=== PATIENT | female | born 1960 | race Caucasian/White ===

== ENCOUNTER 2022-06-28 22:06 | Inpatient (IN) | payer OTHER ==
[~2022-06-28] VITALS: Ht 168.9 cm; Wt 84.0 kg
[2022-06-28 23:16] LABS: BASOPHILS % (AUTO) 0.2 % (0-1); EOSINOPHILS % (AUTO) 0.2 % (0-6); HEMOGLOBIN 12.8 g/dl (12.0-16.0); LYMPHOCYTES # (AUTO) 1.4 X10'3 (1.1-4.8); MEAN CORPUSCULAR HEMOGLOBIN 33.8 PG (27.0-31.0); MEAN CORPUSCULAR HGB CONC 35.7 g/dL (33.0-36.5); MEAN CORPUSCULAR VOLUME 94.8 FL (78-98); MEAN PLATELET VOLUME 6.8 FL (7.4-10.4); MONOCYTES % (AUTO) 6.9 % (2-12); NEUTROPHILS # (AUTO) 11.8 X10'3 (1.8-7.7); NEUTROPHILS % (AUTO) 82.7 % (42-75); PLATELET COUNT 258 X10'3 (140-440); RED BLOOD COUNT 3.79 X10'6 (4.20-5.60); RED CELL DISTRIBUTION WIDTH 12.8 % (11.5-14.5); WHITE BLOOD COUNT 14.3 X10'3 (4.5-11.0)
[2022-06-28 23:26] LABS: ALANINE AMINOTRANSFERASE 22 U/L (12-78); ALBUMIN 3.4 G/DL (3.4-5.0); ALKALINE PHOSPHATASE 84 IU/L (46-116); ANION GAP 9 (8-16); ASPARTATE AMINO TRANSFERASE 25 U/L (10-37); BILIRUBIN,TOTAL 0.5 MG/DL (0.1-1.0); BLOOD UREA NITROGEN 9 MG/DL (7-18); BUN/CREATININE RATIO 8.9 (6.6-38.0); CALCIUM 8.2 MG/DL (8.5-10.1); CHLORIDE 82 MMOL/L (99-107); CREATININE 1.01 MG/DL (0.40-0.90); GLUCOSE 123 MG/DL (70-104); LIPASE 98 U/L (73-393); POTASSIUM 3.4 MMOL/L (3.5-5.1); TOTAL CARBON DIOXIDE 22.7 MMOL/L (24-32); TOTAL PROTEIN 6.9 G/DL (6.4-8.2); eGFR 56 ML/MIN
[2022-06-28 23:31] LABS: SODIUM 114 MMOL/L (135-145)
[2022-06-29 02:27] LABS: CLARITY,URINE CLEAR (Clear); GLUCOSE, URINE NEGATIVE (Neg); KETONES,URINE NEGATIVE (Neg); LEUKOCYTE ESTERASE ,URINE NEGATIVE (Neg); NITRITES, URINE NEGATIVE (Neg); OCCULT BLOOD,URINE NEGATIVE (Neg); PROTEIN,URINE NEGATIVE (Neg); UROBILINOGEN,URINE 0.2 E.U/dL (0.2-1.0)
[2022-06-29 02:30] LABS: COLOR,URINE STRAW (Yellow); UA COLLECTION TYPE CLN CATCH MIDSTREAM
[2022-06-29] MEDS ORDERED: ondansetron/PF 4mg/2ml inj IV ONE (03:40)
[2022-06-29] MEDS ORDERED: POTASSIUM BICARB 20meq eff tab 20 MEQ TABLET.EFF PO ONE (03:40)
[2022-06-29 04:02] LABS: OSMOLALITY 238 MOSM/K (280-300)
[2022-06-29 04:06] LABS: OSMOLALITY UA 101 MOSM/K (50-1400)
[2022-06-29 04:14] LABS: SODIUM,URINE RANDOM < 15 MEQ/L
[2022-06-29] MEDS ORDERED: magnesium hydroxide 30ml (MOM) UD suspension PO PRN (04:15)
[2022-06-29] MEDS ORDERED: magnesium 4gm in 100ml NS 100 ML IV PRN (04:15)
[2022-06-29] MEDS ORDERED: potassium Cl 40MEQ/1/2NS 520ml 520 ML IV PRN (04:15)
[2022-06-29] MEDS ORDERED: ondansetron/PF 4mg/2ml inj IV PRN (04:15)
[2022-06-29] MEDS ORDERED: mag hydrox/Alum hydrox/simeth 30ml oral suspension PO PRN (04:15)
[2022-06-29] MEDS ORDERED: magnesium Cl slow-release 64mg tablet PO PRN (04:15)
[2022-06-29] MEDS ORDERED: potassium Cl 20 mEq SR tablet PO PRN ×2 (04:15)
[2022-06-29] MEDS ORDERED: amLODIPine 2.5mg tablet PO ONE (04:25)
[2022-06-29] MEDS: normal saline 1000ml 1,000 ML IV SCH ×2 (04:49→14:10)
--- NOTE | 2022-06-29 05:12 | NUR ---
PATIENT AMBULATED TO RESTROOM WITHOUT DIFFICULTY.
[2022-06-29 07:18] LABS: MAGNESIUM 1.5 MG/DL (1.5-2.4); POTASSIUM 4.1 MMOL/L (3.5-5.1)
[2022-06-29] MEDS: K and/or MAG REPLACEMENT MC SCH ×2 (08:00→20:00)
[2022-06-29] MEDS: docusate sod 100mg capsule PO SCH ×2 (08:00→20:00)
[2022-06-29] MEDS: heparin, porcine 5000 units/ml vial SQ SCH ×2 (08:01→20:50)
[2022-06-29 08:03] LABS: BASOPHILS % (AUTO) 0.3 % (0-1); EOSINOPHILS % (AUTO) 0.3 % (0-6); HEMATOCRIT 38.9 % (35.0-45.0); HEMOGLOBIN 13.3 g/dl (12.0-16.0); LYMPHOCYTES # (AUTO) 1.4 X10'3 (1.1-4.8); LYMPHOCYTES % (AUTO) 11.5 % (21-51); MEAN CORPUSCULAR HEMOGLOBIN 32.7 PG (27.0-31.0); MEAN CORPUSCULAR HGB CONC 34.3 g/dL (33.0-36.5); MEAN CORPUSCULAR VOLUME 95.5 FL (78-98); MEAN PLATELET VOLUME 7.5 FL (7.4-10.4); MONOCYTES # (AUTO) 0.9 X10'3 (0-0.9); MONOCYTES % (AUTO) 7.3 % (2-12); NEUTROPHILS % (AUTO) 80.6 % (42-75); PLATELET COUNT 282 X10'3 (140-440); RED BLOOD COUNT 4.07 X10'6 (4.20-5.60); RED CELL DISTRIBUTION WIDTH 12.6 % (11.5-14.5); WHITE BLOOD COUNT 12.4 X10'3 (4.5-11.0)
[2022-06-29 08:12] LABS: ALANINE AMINOTRANSFERASE 22 U/L (12-78); ALBUMIN 3.3 G/DL (3.4-5.0); ALBUMIN/GLOBULIN RATIO 0.9 (1.1-1.5); ALKALINE PHOSPHATASE 88 IU/L (46-116); ANION GAP 8 (8-16); ASPARTATE AMINO TRANSFERASE 24 U/L (10-37); BILIRUBIN,TOTAL 0.6 MG/DL (0.1-1.0); BLOOD UREA NITROGEN 6 MG/DL (7-18); BUN/CREATININE RATIO 6.3 (6.6-38.0); CHLORIDE 85 MMOL/L (99-107); CREATININE 0.95 MG/DL (0.40-0.90); GLUCOSE 115 MG/DL (70-104); TOTAL CARBON DIOXIDE 24.2 MMOL/L (24-32); eGFR 60 ML/MIN
[2022-06-29 08:33] LABS: SODIUM 117 MMOL/L (135-145)
[2022-06-29] MEDS: salt irrigation nasal spray 45 ML SPRAY NS SCH (13:05)
[2022-06-29] MEDS: fluticasone nasal spray 16GM bottle NS SCH (13:05)
[2022-06-29] MEDS ORDERED: OMEP40CA21 PO (13:30)
[2022-06-29] MEDS ORDERED: LISI20TA28 PO (13:30)
[2022-06-29] MEDS ORDERED: FLUT16SP2 BOTHNARES (13:30)
[2022-06-29] MEDS ORDERED: IBUP200C5 PO (13:30)
[2022-06-29 15:53] LABS: ALBUMIN 3.7 G/DL (3.4-5.0); ANION GAP 6 (8-16); BLOOD UREA NITROGEN 6 MG/DL (7-18); BUN/CREATININE RATIO 5.5 (6.6-38.0); CALCIUM 9.1 MG/DL (8.5-10.1); CHLORIDE 89 MMOL/L (99-107); CREATININE 1.09 MG/DL (0.40-0.90); GLUCOSE 109 MG/DL (70-104); POTASSIUM 4.1 MMOL/L (3.5-5.1); SODIUM 121 MMOL/L (135-145); TOTAL CARBON DIOXIDE 26.4 MMOL/L (24-32); eGFR 51 ML/MIN
--- NOTE | 2022-06-29 18:45 | NUR ---
Patient in room [facility]. I have received report from ERIKA Corrales and had the opportunity to ask questions and assume patient care.
--- NOTE | 2022-06-29 19:10 | NUR ---
pt arrived to floor via wc. ambulated to bathroom and then into bed.
[2022-06-29 19:15] VITALS: BP 132/61
[2022-06-29] MEDS ORDERED: fluticasone nasal spray 16GM bottle NS PRN (20:40)
[2022-06-29] MEDS: cetirizine 10mg tablet PO SCH (20:49)
[2022-06-29] MEDS: acetaminophen 325mg tablet PO PRN (21:05)
[2022-06-29 22:00] VITALS: BP 151/71
[2022-06-30] MEDS: normal saline 1000ml 1,000 ML IV SCH ×2 (02:37→10:15)
[2022-06-30] MEDS: acetaminophen 325mg tablet PO PRN ×2 (03:37→13:55)
--- NOTE | 2022-06-30 06:24 | NUR ---
Problems reprioritized. Patient report given, questions answered & plan of care reviewed with ERIKA Cartwright.
[2022-06-30 06:52] VITALS: BP 138/72
[2022-06-30 07:01] LABS: BASOPHILS % (AUTO) 0.5 % (0-1); EOSINOPHILS # (AUTO) 0.1 X10'3 (0-0.9); EOSINOPHILS % (AUTO) 0.6 % (0-6); HEMATOCRIT 34.4 % (35.0-45.0); LYMPHOCYTES # (AUTO) 2.4 X10'3 (1.1-4.8); LYMPHOCYTES % (AUTO) 27.3 % (21-51); MEAN CORPUSCULAR HEMOGLOBIN 33.8 PG (27.0-31.0); MEAN CORPUSCULAR HGB CONC 34.9 g/dL (33.0-36.5); MEAN PLATELET VOLUME 7.4 FL (7.4-10.4); MONOCYTES # (AUTO) 1.1 X10'3 (0-0.9); MONOCYTES % (AUTO) 12.1 % (2-12); NEUTROPHILS # (AUTO) 5.2 X10'3 (1.8-7.7); NEUTROPHILS % (AUTO) 59.5 % (42-75); PLATELET COUNT 244 X10'3 (140-440); RED BLOOD COUNT 3.54 X10'6 (4.20-5.60); RED CELL DISTRIBUTION WIDTH 13.1 % (11.5-14.5); WHITE BLOOD COUNT 8.8 X10'3 (4.5-11.0)
[2022-06-30 07:08] LABS: ALANINE AMINOTRANSFERASE 20 U/L (12-78); ALBUMIN 2.9 G/DL (3.4-5.0); ALBUMIN/GLOBULIN RATIO 0.9 (1.1-1.5); ALKALINE PHOSPHATASE 74 IU/L (46-116); ANION GAP 6 (8-16); ASPARTATE AMINO TRANSFERASE 22 U/L (10-37); BILIRUBIN,TOTAL 0.4 MG/DL (0.1-1.0); BLOOD UREA NITROGEN 10 MG/DL (7-18); BUN/CREATININE RATIO 8.7 (6.6-38.0); CALCIUM 8.1 MG/DL (8.5-10.1); CHLORIDE 95 MMOL/L (99-107); CREATININE 1.15 MG/DL (0.40-0.90); GLUCOSE 93 MG/DL (70-104); MAGNESIUM 1.8 MG/DL (1.5-2.4); POTASSIUM 3.8 MMOL/L (3.5-5.1); SODIUM 125 MMOL/L (135-145); TOTAL CARBON DIOXIDE 24.5 MMOL/L (24-32); TOTAL PROTEIN 6.1 G/DL (6.4-8.2); eGFR 48 ML/MIN
[2022-06-30] MEDS ORDERED: pantoprazole 40mg Tablet.DR PO SCH (07:30)
[2022-06-30] MEDS: salt irrigation nasal spray 45 ML SPRAY NS SCH (07:59)
[2022-06-30] MEDS ORDERED: lisinopril 20mg tablet PO SCH (08:00)
[2022-06-30] MEDS: docusate sod 100mg capsule PO SCH (08:00)
[2022-06-30] MEDS: fluticasone nasal spray 16GM bottle NS SCH (08:00)
[2022-06-30] MEDS: cetirizine 10mg tablet PO SCH (08:00)
[2022-06-30] MEDS: heparin, porcine 5000 units/ml vial SQ SCH (08:05)
[2022-06-30] MEDS ORDERED: pseudoephedrine 30mg tablet PO ONE (08:50)
[2022-06-30 11:00] VITALS: BP 128/60
--- NOTE | 2022-06-30 14:19 | NUR ---
PT DISCHARGED IN STABLE CONDITION. LEFT FACILITY IN PRIVATE VEHICLE WITH FRIEND. IV DC CANULA INTACT. FOLLOW UP INSTRUCTIONS GIVEN, ALL QUESTIONS ANSWERED. ALL BELONGINGS IN HAND. Addendum: 06/30/22 at 1420 by Amanda Saleem RN Amended: Links added.
== END 2022-06-30 14:23 | disposition home or self-care (01) | DRG 641 ==
LOC: ER 22:08 → ED HOLD 06-29 04:15 → SUR 3N 06-29 19:05
PROVIDERS: ADMIT Internal Medicine; ATTEND Family Medicine
DX: E87.1 Hypo-osmolality and hyponatremia (principal); E86.0 Dehydration; H92.03 Otalgia, bilateral; Z20.822 Contact with and (suspected) exposure to COVID-19; R09.81 Nasal congestion; D72.823 Leukemoid reaction; E87.6 Hypokalemia; K21.9 Gastro-esophageal reflux disease without esophagitis; E87.8 Other disorders of electrolyte and fluid balance, not elsewhere classified; I12.9 Hypertensive chronic kidney disease with stage 1 through stage 4 chronic kidney disease, or unspecified chronic kidney disease; N18.30 Chronic kidney disease, stage 3 unspecified; Z88.0 Allergy status to penicillin; Z88.8 Allergy status to other drugs, medicaments and biological substances; Z79.899 Other long term (current) drug therapy
CPT/HCPCS: 36415; 71045; 80048; 80053; 81003; 82570; 83690; 83735; 83930; 83935; 84300; 84540; 85025; 87081; 87635; 96361; 96374; 99285; G0378; J1644; J2405; J7030

== ENCOUNTER 2022-07-02 19:29 | Emergency (ER) | payer SELFPAY ==
[~2022-07-02] VITALS: Ht 167.6 cm; Wt 84.1 kg
[~2022-07-02 19:29] MED LIST: FLUT16SP2 BOTHNARES; LISI20TA28 PO; OMEP40CA21 PO
[2022-07-02 22:25] LABS: BASOPHILS % (AUTO) 0.2 % (0-1); EOSINOPHILS # (AUTO) 0.1 X10'3 (0-0.9); EOSINOPHILS % (AUTO) 0.7 % (0-6); HEMOGLOBIN 12.6 g/dl (12.0-16.0); LYMPHOCYTES # (AUTO) 2.2 X10'3 (1.1-4.8); LYMPHOCYTES % (AUTO) 19.2 % (21-51); MEAN CORPUSCULAR HEMOGLOBIN 33.1 PG (27.0-31.0); MEAN CORPUSCULAR HGB CONC 34.1 g/dL (33.0-36.5); MEAN CORPUSCULAR VOLUME 97.2 FL (78-98); MEAN PLATELET VOLUME 6.8 FL (7.4-10.4); MONOCYTES # (AUTO) 1.2 X10'3 (0-0.9); MONOCYTES % (AUTO) 10.8 % (2-12); NEUTROPHILS # (AUTO) 7.8 X10'3 (1.8-7.7); NEUTROPHILS % (AUTO) 69.1 % (42-75); PLATELET COUNT 275 X10'3 (140-440); RED BLOOD COUNT 3.81 X10'6 (4.20-5.60); RED CELL DISTRIBUTION WIDTH 13.1 % (11.5-14.5); WHITE BLOOD COUNT 11.3 X10'3 (4.5-11.0)
[2022-07-02 22:37] LABS: ALANINE AMINOTRANSFERASE 23 U/L (12-78); ALBUMIN 3.6 G/DL (3.4-5.0); ALBUMIN/GLOBULIN RATIO 0.9 (1.1-1.5); ALKALINE PHOSPHATASE 80 IU/L (46-116); ANION GAP 11 (8-16); ASPARTATE AMINO TRANSFERASE 26 U/L (10-37); BILIRUBIN,TOTAL 0.4 MG/DL (0.1-1.0); BLOOD UREA NITROGEN 5 MG/DL (7-18); BUN/CREATININE RATIO 4.8 (6.6-38.0); CHLORIDE 95 MMOL/L (99-107); CREATININE 1.05 MG/DL (0.40-0.90); GLUCOSE 92 MG/DL (70-104); MAGNESIUM 1.6 MG/DL (1.5-2.4); POTASSIUM 3.1 MMOL/L (3.5-5.1); SODIUM 130 MMOL/L (135-145); TOTAL CARBON DIOXIDE 24.4 MMOL/L (24-32); TOTAL PROTEIN 7.4 G/DL (6.4-8.2); eGFR 53 ML/MIN
[2022-07-02 23:34] LABS: CLARITY,URINE CLEAR (Clear); COLOR,URINE YELLOW (Yellow); GLUCOSE, URINE NEGATIVE (Neg); KETONES,URINE NEGATIVE (Neg); LEUKOCYTE ESTERASE ,URINE NEGATIVE (Neg); NITRITES, URINE NEGATIVE (Neg); OCCULT BLOOD,URINE TRACE-INTACT (Neg); PROTEIN,URINE NEGATIVE (Neg); UROBILINOGEN,URINE 0.2 E.U/dL (0.2-1.0)
[2022-07-02 23:38] LABS: UA COLLECTION TYPE VOIDED
[2022-07-02 23:42] LABS: BACTERIA,URINE FEW /HPF (Neg); MUCUS STRANDS NONE SEEN /LPF (Neg); RBC,URINE 0-2 /HPF (0-2); SQUAMOUS EPITHELIAL CELL,UR FEW /LPF (FEW); WBC,URINE 0-4 /HPF (0-4)
[2022-07-03] MEDS ORDERED: potassium Cl 20 mEq SR tablet PO STA (00:18)
[2022-07-03 00:35] VITALS: BP 170/81
== END 2022-07-03 00:37 | disposition home or self-care (01) ==
LOC: ER 19:30
DX: E87.1 Hypo-osmolality and hyponatremia (principal); E87.6 Hypokalemia; G89.29 Other chronic pain; M54.59 Other low back pain; K21.9 Gastro-esophageal reflux disease without esophagitis; I10 Essential (primary) hypertension; Z88.1 Allergy status to other antibiotic agents; Z88.0 Allergy status to penicillin; Z79.899 Other long term (current) drug therapy
CPT/HCPCS: 36415; 80053; 81001; 83735; 85025; 99283

== ENCOUNTER 2022-07-04 23:29 | Emergency (ER) | payer SELFPAY ==
[~2022-07-04] VITALS: Ht 167.6 cm; Wt 84.1 kg
[2022-07-04 23:35] VITALS: BP 193/83
[2022-07-05 00:34] LABS: CLARITY,URINE CLEAR (Clear); GLUCOSE, URINE NEGATIVE (Neg); KETONES,URINE NEGATIVE (Neg); LEUKOCYTE ESTERASE ,URINE NEGATIVE (Neg); NITRITES, URINE NEGATIVE (Neg); OCCULT BLOOD,URINE NEGATIVE (Neg); PH,URINE 5.5 (4.8-8.0); PROTEIN,URINE NEGATIVE (Neg); UROBILINOGEN,URINE 0.2 E.U/dL (0.2-1.0)
[2022-07-05 00:37] LABS: ALANINE AMINOTRANSFERASE 25 U/L (12-78); ALBUMIN 3.6 G/DL (3.4-5.0); ALKALINE PHOSPHATASE 72 IU/L (46-116); ANION GAP 10 (8-16); ASPARTATE AMINO TRANSFERASE 25 U/L (10-37); BILIRUBIN,TOTAL 0.3 MG/DL (0.1-1.0); BLOOD UREA NITROGEN 7 MG/DL (7-18); BUN/CREATININE RATIO 6.1 (6.6-38.0); CALCIUM 8.8 MG/DL (8.5-10.1); CHLORIDE 92 MMOL/L (99-107); CREATININE 1.14 MG/DL (0.40-0.90); GLUCOSE 99 MG/DL (70-104); POTASSIUM 3.3 MMOL/L (3.5-5.1); SODIUM 126 MMOL/L (135-145); TOTAL CARBON DIOXIDE 24.1 MMOL/L (24-32); TOTAL PROTEIN 7.3 G/DL (6.4-8.2); eGFR 49 ML/MIN
[2022-07-05 00:41] LABS: UA COLLECTION TYPE CLN CATCH MIDSTREAM
[2022-07-05 00:42] LABS: COLOR,URINE STRAW (Yellow)
== END 2022-07-05 01:21 | disposition home or self-care (01) ==
LOC: ER 23:30
DX: E87.1 Hypo-osmolality and hyponatremia (principal); E86.0 Dehydration; I10 Essential (primary) hypertension; K21.9 Gastro-esophageal reflux disease without esophagitis; Z88.1 Allergy status to other antibiotic agents; Z88.0 Allergy status to penicillin; Z79.899 Other long term (current) drug therapy
CPT/HCPCS: 36415; 80053; 81003; 99283

== ENCOUNTER 2022-10-07 21:24 | Emergency (ER) | payer BC ==
[~2022-10-07] VITALS: Ht 167.6 cm; Wt 75.8 kg
[2022-10-08 00:12] LABS: BASOPHILS # (AUTO) 0.1 X10'3 (0-0.2); EOSINOPHILS # (AUTO) 0.1 X10'3 (0-0.9); EOSINOPHILS % (AUTO) 0.9 % (0-6); HEMATOCRIT 33.6 % (35.0-45.0); HEMOGLOBIN 11.6 g/dl (12.0-16.0); LYMPHOCYTES # (AUTO) 2.8 X10'3 (1.1-4.8); LYMPHOCYTES % (AUTO) 25.5 % (21-51); MEAN CORPUSCULAR HEMOGLOBIN 32.6 PG (27.0-31.0); MEAN CORPUSCULAR HGB CONC 34.6 g/dL (33.0-36.5); MEAN CORPUSCULAR VOLUME 94.2 FL (78-98); MEAN PLATELET VOLUME 7.2 FL (7.4-10.4); MONOCYTES # (AUTO) 0.8 X10'3 (0-0.9); MONOCYTES % (AUTO) 7.3 % (2-12); NEUTROPHILS # (AUTO) 7.3 X10'3 (1.8-7.7); NEUTROPHILS % (AUTO) 65.3 % (42-75); PLATELET COUNT 317 X10'3 (140-440); RED BLOOD COUNT 3.57 X10'6 (4.20-5.60); RED CELL DISTRIBUTION WIDTH 12.9 % (11.5-14.5); WHITE BLOOD COUNT 11.2 X10'3 (4.5-11.0)
[2022-10-08 00:24] LABS: ALANINE AMINOTRANSFERASE 17 U/L (12-78); ALBUMIN/GLOBULIN RATIO 1.1 (1.1-1.5); ALKALINE PHOSPHATASE 78 IU/L (46-116); ANION GAP 12 (8-16); ASPARTATE AMINO TRANSFERASE 17 U/L (10-37); BILIRUBIN,TOTAL 0.5 MG/DL (0.1-1.0); BLOOD UREA NITROGEN 18 MG/DL (7-18); BUN/CREATININE RATIO 14.3 (6.6-38.0); CALCIUM 9.4 MG/DL (8.5-10.1); CHLORIDE 96 MMOL/L (99-107); CREATININE 1.26 MG/DL (0.40-0.90); GLUCOSE 103 MG/DL (70-104); POTASSIUM 4.2 MMOL/L (3.5-5.1); SODIUM 130 MMOL/L (135-145); TOTAL CARBON DIOXIDE 21.8 MMOL/L (24-32); TOTAL PROTEIN 7.6 G/DL (6.4-8.2); eGFR 43 ML/MIN
[2022-10-08 01:40] VITALS: BP 120/68
== END 2022-10-08 01:43 | disposition home or self-care (01) ==
LOC: ER 21:25
DX: I10 Essential (primary) hypertension (principal); K21.9 Gastro-esophageal reflux disease without esophagitis; G89.29 Other chronic pain; M54.9 Dorsalgia, unspecified; Z88.1 Allergy status to other antibiotic agents; Z88.0 Allergy status to penicillin
CPT/HCPCS: 36415; 80053; 85025; 93005; 99284

== ENCOUNTER 2022-10-12 11:19 | Emergency (ER) | payer BC ==
[~2022-10-12] VITALS: Ht 170.2 cm; Wt 79.5 kg
[2022-10-12 11:50] VITALS: BP 125/44
[2022-10-12 13:12] LABS: EOSINOPHILS # (AUTO) 0.1 X10'3 (0-0.9); HEMOGLOBIN 12.1 g/dl (12.0-16.0); LYMPHOCYTES # (AUTO) 2.4 X10'3 (1.1-4.8); MEAN CORPUSCULAR HEMOGLOBIN 31.8 PG (27.0-31.0); MEAN CORPUSCULAR HGB CONC 33.6 g/dL (33.0-36.5); MEAN PLATELET VOLUME 7.6 FL (7.4-10.4); RED BLOOD COUNT 3.81 X10'6 (4.20-5.60)
[2022-10-12 13:14] LABS: BASOPHILS % (AUTO) 0.3 % (0-1); EOSINOPHILS % (AUTO) 0.6 % (0-6); HEMATOCRIT 36.1 % (35.0-45.0); LYMPHOCYTES % (AUTO) 18.7 % (21-51); MEAN CORPUSCULAR VOLUME 94.8 FL (78-98); MONOCYTES # (AUTO) 0.7 X10'3 (0-0.9); MONOCYTES % (AUTO) 5.7 % (2-12); NEUTROPHILS # (AUTO) 9.6 X10'3 (1.8-7.7); NEUTROPHILS % (AUTO) 74.7 % (42-75); PLATELET COUNT 320 X10'3 (140-440); WHITE BLOOD COUNT 12.9 X10'3 (4.5-11.0)
[2022-10-12 13:25] LABS: ALANINE AMINOTRANSFERASE 17 U/L (12-78); ALBUMIN 4.3 G/DL (3.4-5.0); ALBUMIN/GLOBULIN RATIO 1.3 (1.1-1.5); ALKALINE PHOSPHATASE 87 IU/L (46-116); ANION GAP 8 (8-16); ASPARTATE AMINO TRANSFERASE 19 U/L (10-37); BILIRUBIN,TOTAL 0.4 MG/DL (0.1-1.0); BLOOD UREA NITROGEN 16 MG/DL (7-18); CALCIUM 9.4 MG/DL (8.5-10.1); CHLORIDE 96 MMOL/L (99-107); CREATINE KINASE 109 U/L (26-192); GLUCOSE 100 MG/DL (70-104); POTASSIUM 4.9 MMOL/L (3.5-5.1); SODIUM 130 MMOL/L (135-145); TOTAL CARBON DIOXIDE 25.7 MMOL/L (24-32); TOTAL PROTEIN 7.7 G/DL (6.4-8.2); eGFR 33 ML/MIN
[2022-10-12 14:04] LABS: CLARITY,URINE SLIGHTLY CLOUDY (Clear); COLOR,URINE YELLOW (Yellow); GLUCOSE, URINE NEGATIVE (Neg); KETONES,URINE NEGATIVE (Neg); LEUKOCYTE ESTERASE ,URINE NEGATIVE (Neg); NITRITES, URINE NEGATIVE (Neg); OCCULT BLOOD,URINE TRACE-INTACT (Neg); PH,URINE 5.5 (4.8-8.0); PROTEIN,URINE NEGATIVE (Neg); UROBILINOGEN,URINE 0.2 E.U/dL (0.2-1.0)
[2022-10-12 14:05] LABS: UA COLLECTION TYPE CLN CATCH MIDSTREAM
[2022-10-12 14:14] LABS: BACTERIA,URINE FEW /HPF (Neg); MUCUS STRANDS NONE SEEN /LPF (Neg); RBC,URINE 0-2 /HPF (0-2); SQUAMOUS EPITHELIAL CELL,UR MODERATE /LPF (FEW); WBC,URINE 0-4 /HPF (0-4)
== END 2022-10-12 14:06 | disposition home or self-care (01) ==
LOC: ER 11:19
DX: I12.0 Hypertensive chronic kidney disease with stage 5 chronic kidney disease or end stage renal disease (principal); E11.22 Type 2 diabetes mellitus with diabetic chronic kidney disease; N18.6 End stage renal disease; K21.9 Gastro-esophageal reflux disease without esophagitis; F17.200 Nicotine dependence, unspecified, uncomplicated; G89.29 Other chronic pain; M54.9 Dorsalgia, unspecified; Z88.1 Allergy status to other antibiotic agents; Z88.0 Allergy status to penicillin; Z79.899 Other long term (current) drug therapy
CPT/HCPCS: 36415; 80053; 81001; 82550; 85025; 93005; 99284

== ENCOUNTER 2025-01-01 18:37 | Emergency (ER) | payer BC ==
[~2025-01-01] VITALS: Ht 167.6 cm; Wt 90.5 kg
[2025-01-01 19:55] VITALS: BP 155/73; PULSE 66; RESP 18; TEMP 98.6; O2SAT 97
--- NOTE | 2025-01-01 19:58 | Physician Documentation ---
History of Present Illness ~ Chief Complaint: Hypertension Stated Complaint: "MY BP IS WAY TO HIGH" Time Seen by MD: 19:43 Primary Medical Doctor: maninder [facility] This 64-year-old female presented after having a high blood pressure reading at home prior to taking her nightly dose of high blood pressure medication, patient presented to the emergency department due to concern for high blood pressure after taking her nightly dose, patient reports that she has had a chance to speak to her primary care provider who will see her tomorrow. Patient reports no physical symptoms including no chest pain, shortness of breath, headache, vision changes, or dizziness. Medication Reconciliation Allergies: Coded Allergies: doxycycline (Verified Allergy, Unknown, RASH, ITCHING, 10/12/22) penicillin V (Verified Allergy, Unknown, RASH, ITCHING, 10/12/22) Scheduled Lisinopril (Lisinopril), 1 TAB PO DAILY, (Reported) Omeprazole (Prilosec), 1 CAP PO DAILY, (Reported) Scheduled PRN Fluticasone Propionate (Flonase), 2 SPRAYS BOTHNARES DAILY PRN for allergies, (Reported) Past Medical History Past Medical History: Hypertension, GERD, Chronic Kidney Disease, Chronic Back Pain Past Surgical History: noncontributory Alcohol Use: None Drug Use: none Lives In: Home Review of Systems ROS Hypertension as stated above in the HPI, otherwise all systems are reviewed and negative. Physical Exam Vital Signs: Temperature: 98.6, Source: Oral, Heart Rate: 66, Respiratory Rate: 18, BP: 155/73, Pulse Oximetry: 97, Weight: 90.500 Oxygen Flow Rate: 0 Physical Exam VITALS: Reviewed and as above. GENERAL: Alert, nontoxic appearing, no apparent distress. HEENT: PERRLA, EOMI RESPIRATORY: No increased work of breathing, no respiratory distress, speaking in full clear sentences, sounds in all young CV: Regular rate and rhythm no murmur, no edema Progress Results/Orders Results/Orders Vital Signs 01/01/25 01/01/25 18:51 19:55 Temp 98.0 98.6 Pulse 83 66 Resp 17 18 B/P (MAP) 192/73 155/73 (100) Pulse Ox 97 97 O2 Flow Rate 0 Medical Decision Making Findings This 64-year-old female with history of hypertension presented with a single high blood pressure reading taken prior to her p.m. dose of hypertension medication, patient did take medication after this high blood pressure reading though presented to the emergency department, on triage patient's blood pressure was markedly elevated however on reassessment blood pressure had fall onto a much lower level though still somewhat elevated. Patient reported no physical symptoms including no headache, chest pain, shortness of breath, vision changes, or dizziness to suggest end-organ damage that would represent a hypertensive emergency. Physical exam was benign and patient is appropriate for outpatient follow up which she has already arranged with her primary care provider for tomorrow. Patient provided return to care precautions which she verbalized understanding of. Differential Dx:Considerations: Include HTN, essential, Include HTN, accelerated, Include HTN, malignant, Include HTN, encephalopathy, Include medical noncompliance, Include pulmonary edema, Include other (CVA, TIA) Departure Disposition: 01 HOME / SELF CARE / HOMELESS Impression: Primary Impression: Uncontrolled hypertension Condition: Improved Discharge Instructions: Hypertension, Adult Additional Instructions: Continue taking your blood pressure medication as previously prescribed, please follow up with your primary care provider in the next few days about your elevated blood pressure readings. Please return to the emergency department for any new or worsening concerning symptoms. Referrals: NO PRIMARY CARE PROVIDER (PCP) Education Educated: Patient Educated regarding: diagnosis, treatment, prognosis, need for follow up Signature Scribe Signature: No scribe Attestation: The note accurately reflects work and decisions made by me.FERNANDO Lewis 01/02/25 03:30 ROSENDO BAUTISTA January 01, 2025 19:58
== END 2025-01-01 20:14 | disposition home or self-care (01) ==
LOC: ER 18:38
DX: I12.9 Hypertensive chronic kidney disease with stage 1 through stage 4 chronic kidney disease, or unspecified chronic kidney disease (principal); N18.9 Chronic kidney disease, unspecified; K21.9 Gastro-esophageal reflux disease without esophagitis; Z88.0 Allergy status to penicillin; Z88.1 Allergy status to other antibiotic agents; Z88.8 Allergy status to other drugs, medicaments and biological substances
CPT/HCPCS: 99281

== ENCOUNTER 2025-01-04 17:35 | Inpatient (IN) | payer BC ==
[~2025-01-04] VITALS: Ht 167.6 cm; Wt 88.7 kg
[2025-01-04 18:32] LABS: BASOPHILS % (AUTO) 0.3 % (0-1); EOSINOPHILS % (AUTO) 0.1 % (0-6); HEMATOCRIT 35.2 % (35.0-45.0); HEMOGLOBIN 12.1 g/dl (12.0-16.0); LYMPHOCYTES # (AUTO) 1.8 X10'3 (1.1-4.8); LYMPHOCYTES % (AUTO) 14.4 % (21-51); MEAN CORPUSCULAR HEMOGLOBIN 32.8 PG (27.0-31.0); MEAN CORPUSCULAR HGB CONC 34.3 g/dL (33.0-36.5); MEAN CORPUSCULAR VOLUME 95.7 FL (78-98); MEAN PLATELET VOLUME 6.9 FL (7.4-10.4); MONOCYTES # (AUTO) 0.9 X10'3 (0-0.9); MONOCYTES % (AUTO) 6.9 % (2-12); NEUTROPHILS # (AUTO) 9.8 X10'3 (1.8-7.7); NEUTROPHILS % (AUTO) 78.3 % (42-75); PLATELET COUNT 398 X10'3 (140-440); RED BLOOD COUNT 3.68 X10'6 (4.20-5.60); RED CELL DISTRIBUTION WIDTH 12.8 % (11.5-14.5); WHITE BLOOD COUNT 12.5 X10'3 (4.5-11.0)
[2025-01-04 18:46] LABS: ALANINE AMINOTRANSFERASE 21 U/L (12-78); ALBUMIN 3.9 G/DL (3.4-5.0); ALBUMIN/GLOBULIN RATIO 1.1 (1.1-1.5); ALKALINE PHOSPHATASE 64 IU/L (46-116); ANION GAP 10 (8-16); ASPARTATE AMINO TRANSFERASE 18 U/L (10-37); BILIRUBIN,TOTAL 0.3 MG/DL (0.1-1.0); BLOOD UREA NITROGEN 44 MG/DL (7-18); BUN/CREATININE RATIO 25.9 (10.0-20.0); CALCIUM 8.7 MG/DL (8.5-10.1); CHLORIDE 85 MMOL/L (99-107); GLUCOSE 120 MG/DL (70-104); POTASSIUM 4.9 MMOL/L (3.5-5.1); SODIUM 121 MMOL/L (135-145); TOTAL CARBON DIOXIDE 25.8 MMOL/L (24-32); TOTAL PROTEIN 7.5 G/DL (6.4-8.2); eCRCL 32 ML/MIN; eGFR 30 ML/MIN
--- NOTE | 2025-01-04 19:13 | Physician Documentation ---
History of Present Illness ~ General Chief Complaint: Abnormal Lab(s) Stated Complaint: DEHYDRATION Time Seen by MD: 18:56 Primary Medical Doctor: unk Source: patient, family History of Present Illness Initial Comments h/o htn, ckd 3, hyponatremia p/w dizziness. Last week was on lisinopril 30mg, having elevated BP at night. PCP dropped her lisinopril to 20 and started her on HCTZ 20 which she took for several days. Became dizzy went to yesterday and found to have low NA. D/c her hctz yesterday and plan for lisinopril 20bid. Continues with mild dizziness. Medication Reconciliation Allergies: Coded Allergies: doxycycline (Verified Allergy, Unknown, RASH, ITCHING, 10/12/22) penicillin V (Verified Allergy, Unknown, RASH, ITCHING, 10/12/22) Scheduled Lisinopril (Lisinopril), 1 TAB PO DAILY, (Reported) Omeprazole (Prilosec), 1 CAP PO DAILY, (Reported) Scheduled PRN Fluticasone Propionate (Flonase), 2 SPRAYS BOTHNARES DAILY PRN for allergies, (Reported) Past Medical History Past Medical History: Hypertension, GERD, Chronic Kidney Disease, Chronic Back Pain Past Surgical History: noncontributory Alcohol Use: None Drug Use: none Lives In: Home Review of Systems Constitutional: Denies: fever Neurological: Reports: dizziness; Denies: speech problem, headache, fainting, tingling, problems walking, petit mal seizures, tonic-clonic seizures, cognitive dysfunction Physical Exam Physical Exam Vital Signs: Temperature: 98.0, Source: Temporal, Heart Rate: 81, Respiratory Rate: 16, BP: 167/65, Pulse Oximetry: 100, Weight: 88.700 Oxygen Flow Rate: 0 Physical Exam well appearing no distress neuro awake alert oriented cn2-12 intact normal cognition normal gait 5/5 bilateral ext Progress Progress Note d/w hospitalist team who accepts for admission Results/Orders Reviewed/noted all lab results: Yes (hyponatremia 121 from 130 2022) Results/Orders Orders - TAMAR CHÁVEZ MD Hospitalist (01/04/25 19:00) Fill Out Med Reconciliation (01/04/25 19:00) Completed Orders - TAMAR CHÁVEZ MD Normal Saline 1000ml (Sodium Chloride 10 (01/04/25 19:00) Medications Received in ER Medications (Trade) Dose Ordered Sig/Elo Route PRN Reason Start Time Stop Time Status Last Admin Dose Admin Sodium Chloride 1,000 ml @ 1,000 mls/hr ONCE ONCE IV 01/04/25 19:00 01/04/25 19:59 DC 01/04/25 19:51 1,000 MLS/HR Vital Signs 01/04/25 01/04/25 17:38 20:25 Temp 98.0 Pulse 81 Resp 16 B/P (MAP) 167/65 Pulse Ox 100 O2 Flow Rate 0 Laboratory Tests Test 01/04/25 18:00 White Blood Count 12.5 H Red Blood Count 3.68 L Hemoglobin 12.1 Hematocrit 35.2 Mean Corpuscular Volume 95.7 Mean Corpuscular Hemoglobin 32.8 H Mean Corpuscular Hemoglobin Concent 34.3 Red Cell Distribution Width 12.8 Platelet Count 398 Mean Platelet Volume 6.9 L Neutrophils (%) (Auto) 78.3 H Lymphocytes (%) (Auto) 14.4 L Monocytes (%) (Auto) 6.9 Eosinophils (%) (Auto) 0.1 Basophils (%) (Auto) 0.3 Neutrophils # (Auto) 9.8 H Lymphocytes # (Auto) 1.8 Monocytes # (Auto) 0.9 Eosinophils # (Auto) 0.0 Basophils # (Auto) 0.0 CBC Comment Sodium Level 121 L Potassium Level 4.9 Chloride Level 85 L Carbon Dioxide Level 25.8 Anion Gap 10 Blood Urea Nitrogen 44 H Creatinine 1.70 H Estimated GFR/1.73 m2 30 BUN/Creatinine Ratio 25.9 H Glucose Level 120 H Hemoglobin A1c 5.3 Osmolality 263 L Calcium Level 8.7 Total Bilirubin 0.3 Aspartate Amino Transf (AST/SGOT) 18 Alanine Aminotransferase (ALT/SGPT) 21 Alkaline Phosphatase 64 Total Protein 7.5 Albumin 3.9 Globulin 3.6 Albumin/Globulin Ratio 1.1 Triglycerides Level 59 Cholesterol Level 235 H LDL Cholesterol 133 H HDL Cholesterol 74 H Cholesterol/HDL Ratio 3.2 Thyroid Stimulating Hormone (TSH) 3.51 Chemistry Comments EKG/XRAY/CT/US/VASC/MRI Chest X-Ray : Additional Comments Independent interpretation of chest x-ray shows no acute fracture no pneumothorax normal cardiomediastinal silhouette Medical Decision Making Additional info obtained from: old records Findings d/c summary 07/20 hyponatremia Differential Diagnosis cancer, electrolyte abnormality, seizure Departure Disposition: ADMITTED INPATIENT Admitted to Inpatient Unit: to hospitalist Impression: Primary Impression: Hyponatremia Referrals: NO PRIMARY CARE PROVIDER (PCP) Signature Scribe Signature: vick Attestation: TAMAR Lackey MD January 04, 2025 19:13
[2025-01-04 19:44] LABS: OSMOLALITY 263 MOSM/K (280-300)
[2025-01-04] MEDS: normal saline 1000ml 1,000 ML IV ONE (19:51)
[2025-01-04] MEDS ORDERED: magnesium sulf-water 4G/100mL 100 ML IV PRN (20:25)
[2025-01-04] MEDS ORDERED: ondansetron/PF 4mg/2ml inj IV PRN (20:25)
[2025-01-04] MEDS ORDERED: magnesium hydroxide 30ml (MOM) UD suspension PO PRN (20:25)
[2025-01-04] MEDS ORDERED: potassium Cl 20 mEq SR tablet PO PRN ×2 (20:25)
[2025-01-04] MEDS ORDERED: potassium Cl 40MEQ/1/2NS 520ml 520 ML IV PRN (20:25)
[2025-01-04] MEDS ORDERED: magnesium sulf-water 2g/50mL 50 ML IV PRN (20:25)
[2025-01-04] MEDS ORDERED: acetaminophen 325mg tablet PO PRN (20:25)
[2025-01-04] MEDS ORDERED: mag hydrox/Alum hydrox/simeth 30ml oral suspension PO PRN (20:25)
--- NOTE | 2025-01-04 20:33 | HISTORY AND PHYSICAL-Residence ---
History & Physical Providers to Resident Creating Document: TONI MACKEY, RES ~ History of Present Illness Primary Medical Doctor: Dr. Monet. ([facility]) Reason for Admit\Complaint: Hyponatremia History of Present Illness PCP: Dr. Monet. ([facility]) Damage Assessor: [facility] critical care. 64-year-old female patient with past medical history of CKD, hypertension, GERD, chronic back pain came to the hospital with chief complaint of lightheadedness. The patient endorses that she has been feeling lightheaded mostly when she changes position from lying down to sit down. The patient endorses that she has been feeling mild lightheaded, some chills, sensation that she is going to pass out. The patient denies nausea, vomiting, diarrhea. She endorses that she recently was started on a new medication for her blood pressure (hydrochlorothiazide) 25 mg daily approximately one week ago, couple of days later the patient started having these symptoms. The patient mentioned that he experienced similar symptoms in the past, proximally three years ago where she had decreased level of sodium and potassium after she experienced diarrhea. During this morning her primary care physician recommended her to get blood work control and after checking the result she recommended to come to the hospital. The patient currently denies any chest pain, palpitations, shortness of breath, subjective fever. She endorses that she had gained 20 lb in the last four months. Allergies: Coded Allergies: doxycycline (Verified Allergy, Unknown, RASH, ITCHING, 10/12/22) penicillin V (Verified Allergy, Unknown, RASH, ITCHING, 10/12/22) Home Medications Home Medications Active Reported Flonase (Fluticasone Propionate) 16 Gm [place].susp 2 Sprays BOTHNARES DAILY PRN 30 Days Prilosec (Omeprazole) 40 Mg Capsule 1 Cap PO DAILY Lisinopril 20 Mg Tablet 1 Tab PO DAILY Past Medical History Past Medical History CKD. Hypertension. GERD. Chronic back pain. Past Surgical History Surgical History Comment Two C-sections. Tonsillectomy. Past Social History Smoking: Quit less than 1 year (Quit smoking four months ago. She used to smoke half a pack a day for 40 years.) Alcohol Use: Occasionally (She endorses that she drinks socially. Once per month proximally six beers. 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 HEENT: Conjunctive are pink, sclerae clear, no icterus, pupil is equal in both sides, reactive to light, no ear discharge, no pharyngeal erythema or an edema. Neck: Supple, no JVD, no lymphadenopathy and thyromegaly. Chest: Equal air entry on both lungs, no additional sounds no rhonchi no wheezing at the moment. Cardiovascular: S1-S2 regular sinus rhythm and, regular rate, no gallops, no rubs, no murmurs Abdomen: No visible peristalsis, Bowel sounds present on auscultation, soft, nontender, no guarding, no rigidity Extremities: No obvious deformities, no pitting edema bilaterally, capillary refill intact, peripheral pulsations are intact on both sides Central Nervous System: No focal neurological deficits, no motor or sensory weakness in all 4 extremities, could move all 4 extremities, 2+ deep tendon reflexes, negative Babinski. Musculoskeletal: No joint swelling, deformities, inflammations, and no scoliosis and back tenderness Skin: Warm and dry. Diagnostic Data Last Recorded Lab Results: 01/04/25 1800 01/04/25 1800 Advance Care Planning Advanced Care plannin - 30 Minutes (I spent a total of 17 minutes on reviewing various resuscitative measures/ACP with the patient at the time of admission. The patient has decided on a full code status.) Additional Plan Assessment and plan: 64-year-old female patient came to the hospital with chief complaint of lightheadedness. Acute kidney injury on CKD likely secondary to renal tubular stasis: Hyponatremia: The patient came to the hospital with chief complaint of lightheadedness, recently started on hydrochlorothiazide proximally one week ago. BUN/creatinine ratio: 25.9 suggesting prerenal disease. FeNa: 1.3%- indeterminate. Fractional excretion of urea 6.3% suggesting prerenal disease. Urine sodium: 25. Urine/serum osmolality: 0.82. Sodium: 121, creatinine 1.70, GFR 30, BUN/creatinine ratio 25.9. Serum osmolality 263. Urine sodium 25. Hypovolemic. Likely secondary to diuretic use. NS at 80 mL/hour. Discontinue hydrochlorothiazide. Monitor BMP. Dyslipidemia: Cholesterol 235, LDL 133, HDL 74. ASCVD risk algorithm: 18%. Moderate to high intensity statin recommended because of 10 year risk of cardiovascular event more than 7.5%. Atorvastatin 40 mg daily. Hypertension: Current blood pressure 167/65. We will continue home medication lisinopril 20 mg daily. Close monitoring of blood pressures. GERD: Pantoprazole 40 mg p.o. daily. Code status: Full code DVT prophylaxis: Heparin Analgesia/sedation: None Line/tube: PIV GI prophylaxis: Protonix Nutrition: Regular rate PT: Yes Prognosis: Guarded Disposition: The patient will be admitted to PCU. I saw and evaluated the patient with the resident and agree with plan of care as documented Toni Burrell Internal Medicine Resident [facility] Date of Service: January 04, 2025 Billing Provider: CHANDLER ARTIS MD, FRANCO LUIS, RES January 04, 2025 20:33 CHANDLER ARTIS MD January 05, 2025 06:12
[2025-01-04 21:05] LABS: HEMOGLOBIN A1C 5.3 % (4.5-6.2)
[2025-01-04 21:07] LABS: CHOL/HDL RATIO 3.2 (0.00-4.99); CHOLESTEROL 235 MG/DL (0-200); HDL CHOLESTEROL 74 MG/DL (35-60); LDL CHOLESTEROL 133 MG/DL (50-100); THYROID STIMULATING HORMONE 3.51 ulU/ml (0.34-4.50); TRIGLYCERIDES 59 MG/DL (20-135)
[2025-01-04 21:48] LABS: BILIRUBIN,URINE NEGATIVE (Neg); CLARITY,URINE CLEAR (Clear); COLOR,URINE YELLOW (Yellow); GLUCOSE, URINE NEGATIVE (Neg); KETONES,URINE NEGATIVE (Neg); LEUKOCYTE ESTERASE ,URINE NEGATIVE (Neg); NITRITES, URINE NEGATIVE (Neg); OCCULT BLOOD,URINE NEGATIVE (Neg); OSMOLALITY UA 217 MOSM/K (50-1400); PROTEIN,URINE NEGATIVE (Neg); UROBILINOGEN,URINE 0.2 E.U/dL (0.2-1.0)
[2025-01-04 21:49] LABS: UA COLLECTION TYPE CLN CATCH MIDSTREAM; UA EOSINOPHILS NO EOS /HPF
[2025-01-04 21:50] LABS: SODIUM,URINE RANDOM 25 MEQ/L; TOTAL PROTEIN,URINE RANDOM < 6.0 MG/DL
--- NOTE | 2025-01-04 22:48 | RADIOLOGY REPORT ---
Clinical History sob Comparison None Technique: A single AP/PA chest radiograph was provided for review. Without Contrast MARYBEL BAUTISTA, [id number] FINDINGS: Lungs: Hypoexpanded lungs without pneumothorax, focal consolidation, pleural effusion or mass. Heart: Normal in size and configuration. Mediastinum: Within normal limits. Vasculature: Within normal limits. Tubes/lines: None. Osseous structures: No evidence for acute fracture. IMPRESSION: Low lung volumes. Unremarkable mediastinum. Normal pulmonary vasculature. This report was electronically signed by Richie Lemus MD on 01/04/2025 10:44:36 PM.
[2025-01-04 23:22] LABS: BASOPHILS % (AUTO) 0.3 % (0-1); EOSINOPHILS % (AUTO) 0.1 % (0-6); HEMATOCRIT 33.7 % (35.0-45.0); HEMOGLOBIN 11.5 g/dl (12.0-16.0); LYMPHOCYTES # (AUTO) 2.1 X10'3 (1.1-4.8); LYMPHOCYTES % (AUTO) 18.2 % (21-51); MEAN CORPUSCULAR HEMOGLOBIN 32.7 PG (27.0-31.0); MEAN CORPUSCULAR HGB CONC 34.2 g/dL (33.0-36.5); MEAN CORPUSCULAR VOLUME 95.5 FL (78-98); MEAN PLATELET VOLUME 6.8 FL (7.4-10.4); MONOCYTES # (AUTO) 0.9 X10'3 (0-0.9); NEUTROPHILS # (AUTO) 8.4 X10'3 (1.8-7.7); NEUTROPHILS % (AUTO) 73.4 % (42-75); PLATELET COUNT 382 X10'3 (140-440); RED BLOOD COUNT 3.53 X10'6 (4.20-5.60); RED CELL DISTRIBUTION WIDTH 12.7 % (11.5-14.5); WHITE BLOOD COUNT 11.4 X10'3 (4.5-11.0)
[2025-01-04 23:29] LABS: ALBUMIN 3.7 G/DL (3.4-5.0); ANION GAP 12 (8-16); BLOOD UREA NITROGEN 39 MG/DL (7-18); BUN/CREATININE RATIO 25.2 (10.0-20.0); CALCIUM 8.8 MG/DL (8.5-10.1); CHLORIDE 90 MMOL/L (99-107); CREATININE 1.55 MG/DL (0.40-0.90); GLUCOSE 105 MG/DL (70-104); POTASSIUM 4.4 MMOL/L (3.5-5.1); SODIUM 125 MMOL/L (135-145); TOTAL CARBON DIOXIDE 23.5 MMOL/L (24-32); eCRCL 35 ML/MIN; eGFR 34 ML/MIN
[2025-01-05] VITALS (11 sets, daily range): BP systolic 113–158; BP diastolic 50–75; PULSE 72–93; RESP 13–24; TEMP 97.6–98.1; O2SAT 95–98
[2025-01-05] MEDS: normal saline 1000ml 1,000 ML IV SCH (01:03)
[2025-01-05] MEDS ORDERED: LISI20TA28 PO (01:18)
[2025-01-05 01:54] LABS: BASOPHILS % (AUTO) 0.3 % (0-1); EOSINOPHILS # (AUTO) 0.1 X10'3 (0-0.9); EOSINOPHILS % (AUTO) 0.6 % (0-6); HEMATOCRIT 32.9 % (35.0-45.0); HEMOGLOBIN 11.5 g/dl (12.0-16.0); LYMPHOCYTES # (AUTO) 2.2 X10'3 (1.1-4.8); LYMPHOCYTES % (AUTO) 20.6 % (21-51); MEAN CORPUSCULAR HGB CONC 34.9 g/dL (33.0-36.5); MEAN CORPUSCULAR VOLUME 94.4 FL (78-98); MEAN PLATELET VOLUME 6.4 FL (7.4-10.4); MONOCYTES # (AUTO) 1.1 X10'3 (0-0.9); MONOCYTES % (AUTO) 10.8 % (2-12); NEUTROPHILS # (AUTO) 7.1 X10'3 (1.8-7.7); NEUTROPHILS % (AUTO) 67.7 % (42-75); PLATELET COUNT 366 X10'3 (140-440); RED BLOOD COUNT 3.48 X10'6 (4.20-5.60); RED CELL DISTRIBUTION WIDTH 12.5 % (11.5-14.5); WHITE BLOOD COUNT 10.5 X10'3 (4.5-11.0)
[2025-01-05 02:18] LABS: ALANINE AMINOTRANSFERASE 19 U/L (12-78); ALBUMIN 3.5 G/DL (3.4-5.0); ALKALINE PHOSPHATASE 59 IU/L (46-116); ANION GAP 12 (8-16); ASPARTATE AMINO TRANSFERASE 15 U/L (10-37); BILIRUBIN,TOTAL 0.4 MG/DL (0.1-1.0); BLOOD UREA NITROGEN 35 MG/DL (7-18); BUN/CREATININE RATIO 27.6 (10.0-20.0); CALCIUM 8.7 MG/DL (8.5-10.1); CHLORIDE 91 MMOL/L (99-107); CREATININE 1.27 MG/DL (0.40-0.90); GLUCOSE 100 MG/DL (70-104); MAGNESIUM 1.2 MG/DL (1.5-2.4); SODIUM 127 MMOL/L (135-145); TOTAL CARBON DIOXIDE 23.9 MMOL/L (24-32); TOTAL PROTEIN 6.9 G/DL (6.4-8.2); eCRCL 42 ML/MIN; eGFR 42 ML/MIN
[2025-01-05] MEDS: atorvastatin 20mg tablet PO SCH (07:22)
[2025-01-05] MEDS: heparin, porcine 5000 units/ml vial SQ SCH (07:23)
[2025-01-05] MEDS: lisinopril 20mg tablet PO SCH (08:00)
[2025-01-05] MEDS: pantoprazole 40mg Tablet.DR PO SCH (08:00)
[2025-01-05] MEDS: magnesium Cl slow-release 64mg tablet PO PRN (08:34)
[2025-01-05] MEDS: K and/or MAG REPLACEMENT MC SCH (08:35)
--- NOTE | 2025-01-05 19:28 | PROGRESS NOTE- Residence ---
Progress Note - Resident Providers to CC Resident Creating Document: DAVEY ESQUIVEL RES ~ Antibiotic Timeout Antibiotic Ordered?: No Subjective Patient stated that she started taking HCTZ since two Fridays ago and stopped after six days, she insisted that she gained weight after she quit smoking for which her PCP added HCTZ on her list. She denies any other new neurologic deficits, confusion and cloudy mind, dizziness and lightheadedness. Objective Vital Signs Date Time Temp Pulse Resp B/P (MAP) Pulse Ox O2 Delivery O2 Flow Rate FiO2 01/05/25 15:00 97.7 78 24 132/63 (86) 95 Room Air 01/05/25 07:48 0.0 Result Diagram: 01/05/25 0139 01/05/25 1831 Vitals were stable at the moment General: Well alert, well oriented, not confused, not agitated, not in acute distress, well cooperated during the physical. HEENT: Conjunctive are pink, sclerae clear, no icterus, pupil is equal in both sides, reactive to light, no ear discharge, no pharyngeal erythema or an edema, mouth and lips are moist. Neck: Supple, no JVD, no lymphadenopathy and thyromegaly. Lungs:Equal air entry on both lungs, no additional sounds Heart: S1-S2 regular sinus rhythm and, regular rate, no gallops, no rubs, no murmurs Abdomen: No visible peristalsis, Bowel sounds present on auscultation, soft, nontender, no guarding, no rigidity Extremities: No obvious deformities, 1+ pitting edema bilaterally, capillary refill intact, able to wiggle toes both sides, peripheral pulsations are intact on both sides SOFTWARE ENGINEER SALES: No focal neurological deficits, no motor and sensory weakness in all 4 extremities, could move all 4 extremities Musculoskeletal: No joint swelling, deformities, inflammations, and no scoliosis and back tenderness Skin: No active skin lesions and rashes Counseling Services Smoking & Tobacco Cessation: 3-10 Minutes Assessment Assessment A 64 years old female presented with lightheadedness at sitting and went to the urgent care found to have hyponatremia in her lab with a past medical history of CKD stage III, essential hypertension, GERD, chronic back pain. # hypovolemic hyponatremia from HCTZ # MONIQUE on CKD stage 3 2/2 renal tubular stasis complicated from HCTZ # hypomagnesemia -no obvious causes, medications except HCTZ, tremor to head recent surgeries contributed to hypovolemic hyponatremia -no hyperglycemia, hyperproteinemia, hyperlipidemia -serum osmolality greater than 220, urine sodium less than 40, urine osmolality greater than 100, chest x-ray showed normal except for low lung volumes. -continue 0.9% sodium chloride IV replacement not more than 0.5 per hours -switched monitoring serum sodium check from Q four to q.6 hours -continuous neurological changes monitoring -no orthostatic hypotension -stopped HCTZ -plan to discharge tomorrow after rechecked labs and clinical improvement. -creatinine 1.27, BUN 35 show some improvement from yesterday, continue IV NS -replace magnesium as needed # normocytic anemia mostly from dilutional # neutrophilic leukocytosis -neutrophilic leukocytosis is resolved today with the fluid replacement most probably from the hemoconcentration -likewise, normocytic anemia developed from the possible hemo dilution effect. -no signs of infections and blood loss -continue CBC monitoring daily # dyslipidemia -ASCVD risk 18%, about 40 should be starting statin medication -continue atorvastatin 40 mg daily after counseling with the patient including risks and benefits. # hypertension -continue her lisinopril 20 mg b.i.d. # GERD -continue her home omeprazole 40 mg daily CODE STATUS: Full code DVT prophylaxis: Sc heparin Analgesia/sedation: None Lines/tubes: PIV GI prophylaxis: Omeprazole Nutrition: Regular Prognosis: Guarded Disposition: Continue medical management including IV sodium chloride replacement, rechecked sodium Q 6 hours, encourage movement, and DC plan tomorrow after some improvement. Resident MD attestation: Patient was seen, examined and discussed with attending MD, Dr. Moo ESQUIVEL MD Internal Medicine Resident, PGY2 [facility] Date of Service: January 05, 2025 Billing Provider: AILEEN JENKINS MD Common Visit Codes: [id number] INP/OBS CARE(HIGH) DAVEY ESQUIVEL RES January 05, 2025 19:28 AILEEN JENKINS MD January 05, 2025 21:17
[2025-01-06 02:00] VITALS: BP 158/67; PULSE 78; RESP 18; TEMP 97.3; O2SAT 96
[2025-01-06 06:00] VITALS: BP 136/62; PULSE 80; RESP 18; TEMP 97.9; O2SAT 96
[2025-01-06 06:32] LABS: BASOPHILS % (AUTO) 0.4 % (0-1); EOSINOPHILS % (AUTO) 0.2 % (0-6); HEMATOCRIT 35.5 % (35.0-45.0); HEMOGLOBIN 12.4 g/dl (12.0-16.0); LYMPHOCYTES # (AUTO) 1.5 X10'3 (1.1-4.8); MEAN CORPUSCULAR HEMOGLOBIN 33.4 PG (27.0-31.0); MEAN CORPUSCULAR HGB CONC 34.8 g/dL (33.0-36.5); MEAN CORPUSCULAR VOLUME 95.9 FL (78-98); MEAN PLATELET VOLUME 6.6 FL (7.4-10.4); MONOCYTES # (AUTO) 1.2 X10'3 (0-0.9); MONOCYTES % (AUTO) 11.5 % (2-12); NEUTROPHILS # (AUTO) 7.7 X10'3 (1.8-7.7); NEUTROPHILS % (AUTO) 73.9 % (42-75); PLATELET COUNT 370 X10'3 (140-440); RED CELL DISTRIBUTION WIDTH 12.9 % (11.5-14.5); WHITE BLOOD COUNT 10.4 X10'3 (4.5-11.0)
[2025-01-06 06:48] LABS: ALANINE AMINOTRANSFERASE 17 U/L (12-78); ALBUMIN 3.7 G/DL (3.4-5.0); ALKALINE PHOSPHATASE 65 IU/L (46-116); ANION GAP 8 (8-16); ASPARTATE AMINO TRANSFERASE 22 U/L (10-37); BILIRUBIN,TOTAL 0.5 MG/DL (0.1-1.0); BLOOD UREA NITROGEN 23 MG/DL (7-18); BUN/CREATININE RATIO 17.7 (10.0-20.0); CALCIUM 8.9 MG/DL (8.5-10.1); CHLORIDE 97 MMOL/L (99-107); GLUCOSE 99 MG/DL (70-104); POTASSIUM 4.4 MMOL/L (3.5-5.1); SODIUM 131 MMOL/L (135-145); TOTAL CARBON DIOXIDE 25.6 MMOL/L (24-32); TOTAL PROTEIN 7.5 G/DL (6.4-8.2); eCRCL 41 ML/MIN; eGFR 41 ML/MIN
[2025-01-06 06:49] LABS: MAGNESIUM 1.4 MG/DL (1.5-2.4)
[2025-01-06 08:00] VITALS: RESP 18; O2SAT 96
[2025-01-06] MEDS ORDERED: ATOR40TA72 PO (10:48)
[2025-01-06 11:00] VITALS: BP 136/67; PULSE 93; RESP 19; TEMP 97.8; O2SAT 98
[2025-01-06] MEDS ORDERED: LISI20TA28 PO (12:00)
--- NOTE | 2025-01-06 21:32 | DISCHARGE SUMMARY-Residence ---
Discharge Summary Providers to CC Resident Creating Document: PREET OCONNELL, SHELBY ~ Discharge Summary Admission Diagnosis: hyponatremia Hospital Course DATE OF ADMISSION: 01/04/2025 DATE OF DISCHARGE: 01/06/2025 Chest x-ray FINDINGS: Lungs: Hypoexpanded lungs without pneumothorax, focal consolidation, pleural effusion or mass. Heart: Normal in size and configuration. Mediastinum: Within normal limits. Vasculature: Within normal limits. Tubes/lines: None. Osseous structures: No evidence for acute fracture. IMPRESSION: Low lung volumes. Unremarkable mediastinum. Normal pulmonary vasculature. 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 Monet. ([facility]) Bariatric Coordinator: Chase [facility] critical care. 64-year-old female patient with past medical history of CKD, hypertension, GERD, chronic back pain came to the hospital with chief complaint of lightheadedness. The patient endorses that she has been feeling lightheaded mostly when she changes position from lying down to sit down. The patient endorses that she has been feeling mild lightheaded, some chills, sensation that she is going to pass out. The patient denies nausea, vomiting, diarrhea. She endorses that she recently was started on a new medication for her blood pressure (hydrochlorothiazide) 25 mg daily approximately one week ago, couple of days later the patient started having these symptoms. The patient mentioned that he experienced similar symptoms in the past, proximally three years ago where she had decreased level of sodium and potassium after she experienced diarrhea. During this morning her primary care physician recommended her to get blood work control and after checking the result she recommended to come to the hospital. The patient currently denies any chest pain, palpitations, shortness of breath, subjective fever. She endorses that she had gained 20 lb in the last four months COURSE IN THE HOSPITAL A 64 years old female presented with lightheadedness at sitting and went to the urgent care found to have hyponatremia in her lab with a past medical history of CKD stage III, essential hypertension, GERD, chronic back pain. Admitted for this dyselectronemia. Hypovolemia, hyponatremia, hypomagnesemia is noted and patient is on hydrochlorothiazide. He MONIQUE and CKD stage III is noted. On evaluation no obvious causes were found except the hydrochlorothiazide. No hyperglycemia, no hyperammonemia, her no hyperlipidemia.serum osmolality greater than 220, urine sodium less than 40, urine osmolality greater than 100, chest x- ray showed normal except for low lung volumes. Treated with 0.9% normal saline and switch to serum sodium monitoring from q.4 to q.6 H. we monitor for neurological changes continuously. No orthostatic hypotension was noted. We discontinued hydrochlorothiazide. Serum creatinine is improved with IV normal saline. And we replace magnesium and per protocol. Neutrophilic leukocytosis secondary to hemoconcentration. Normocytic anemia from dilutional factor is noted. Received atorvastatin 40 mg as ASCVD risk is 18%. We sent new prescriptions for lisinopril she ran out of the pills. We continued PPI for her GERD. Patient improved sooner than expected and we discharged earlier. EXAMINATION AT TIME OF DISCHARGE Vital Signs Date Time Temp Pulse Resp B/P (MAP) Pulse Ox O2 Delivery O2 Flow Rate FiO2 01/06/25 11:00 97.8 93 19 136/67 (90) 98 Room Air 01/05/25 20:00 0.0 EXAMINATION General: Well alert, well oriented, not confused, not agitated, not in acute distress, well cooperated during the physical. HEENT: Conjunctive are pink, sclerae clear, no icterus, pupil is equal in both sides, reactive to light, no ear discharge, no pharyngeal erythema or an edema, mouth and lips are moist. Neck: Supple, no JVD, no lymphadenopathy and thyromegaly. Lungs:Equal air entry on both lungs, no additional sounds Heart: S1-S2 regular sinus rhythm and, regular rate, no gallops, no rubs, no murmurs Abdomen: No visible peristalsis, Bowel sounds present on auscultation, soft, nontender, no guarding, no rigidity Extremities: No obvious deformities, 1+ pitting edema bilaterally, capillary refill intact, able to wiggle toes both sides, peripheral pulsations are intact on both sides ELECTROPLATING TECHNICIAN: No focal neurological deficits, no motor and sensory weakness in all 4 extremities, could move all 4 extremities Musculoskeletal: No joint swelling, deformities, inflammations, and no scoliosis and back tenderness Skin: No active skin lesions and rashes Laboratory Tests Test 01/04/25 21:30 01/04/25 23:08 01/05/25 01:39 01/05/25 08:22 Urine Specimen Description Cln catch midstream Urine Color Yellow Urine Clarity Clear Urine pH 6.0 Urine Specific Mathis <=1.005 Urine Protein Negative mg/dl Urine Glucose (UA) Negative mg/dl Urine Ketones Negative mg/dl Urine Occult Blood Negative Urine Nitrite Negative Urine Bilirubin Negative Urine Urobilinogen 0.2 E.U/dL Urine Leukocyte Esterase Negative Urine Culture Indicated Not ind Volume Urine Centrifuged 10 ml Urine Eosinophils No eos /HPF Urine Osmolality 217 MOSM/K Urine Random Creatinine 27.0 MG/DL Urine Random Total Protein < 6.0 MG/DL Urine Random Sodium 25 MEQ/L Urine Comment White Blood Count 11.4 X10'3 10.5 X10'3 Red Blood Count 3.53 X10'6 3.48 X10'6 Hemoglobin 11.5 g/dl 11.5 g/dl Hematocrit 33.7 % 32.9 % Mean Corpuscular Volume 95.5 FL 94.4 FL Mean Corpuscular Hemoglobin 32.7 PG 33.0 PG Mean Corpuscular Hemoglobin Concent 34.2 g/dL 34.9 g/dL Red Cell Distribution Width 12.7 % 12.5 % Platelet Count 382 X10'3 366 X10'3 Mean Platelet Volume 6.8 FL 6.4 FL Neutrophils (%) (Auto) 73.4 % 67.7 % Lymphocytes (%) (Auto) 18.2 % 20.6 % Monocytes (%) (Auto) 8.0 % 10.8 % Eosinophils (%) (Auto) 0.1 % 0.6 % Basophils (%) (Auto) 0.3 % 0.3 % Neutrophils # (Auto) 8.4 X10'3 7.1 X10'3 Lymphocytes # (Auto) 2.1 X10'3 2.2 X10'3 Monocytes # (Auto) 0.9 X10'3 1.1 X10'3 Eosinophils # (Auto) 0.0 X10'3 0.1 X10'3 Basophils # (Auto) 0.0 X10'3 0.0 X10'3 CBC Comment Sodium Level 125 MMOL/L 127 MMOL/L 128 MMOL/L Potassium Level 4.4 MMOL/L 4.0 MMOL/L Chloride Level 90 MMOL/L 91 MMOL/L Carbon Dioxide Level 23.5 MMOL/L 23.9 MMOL/L Anion Gap 12 12 Blood Urea Nitrogen 39 MG/DL 35 MG/DL Creatinine 1.55 MG/DL 1.27 MG/DL Estimated GFR/1.73 m2 34 ML/MIN 42 ML/MIN BUN/Creatinine Ratio 25.2 27.6 Glucose Level 105 MG/DL 100 MG/DL Calcium Level 8.8 MG/DL 8.7 MG/DL Albumin 3.7 G/DL 3.5 G/DL Chemistry Comments Magnesium Level 1.2 MG/DL Total Bilirubin 0.4 MG/DL Aspartate Amino Transf (AST/SGOT) 15 U/L Alanine Aminotransferase (ALT/SGPT) 19 U/L Alkaline Phosphatase 59 IU/L Total Protein 6.9 G/DL Globulin 3.4 G/DL Albumin/Globulin Ratio 1.0 Test 01/05/25 11:50 01/05/25 18:31 01/06/25 00:30 01/06/25 06:13 Sodium Level 128 MMOL/L 129 MMOL/L 131 MMOL/L 131 MMOL/L White Blood Count 10.4 X10'3 Red Blood Count 3.70 X10'6 Hemoglobin 12.4 g/dl Hematocrit 35.5 % Mean Corpuscular Volume 95.9 FL Mean Corpuscular Hemoglobin 33.4 PG Mean Corpuscular Hemoglobin Concent 34.8 g/dL Red Cell Distribution Width 12.9 % Platelet Count 370 X10'3 Mean Platelet Volume 6.6 FL Neutrophils (%) (Auto) 73.9 % Lymphocytes (%) (Auto) 14.0 % Monocytes (%) (Auto) 11.5 % Eosinophils (%) (Auto) 0.2 % Basophils (%) (Auto) 0.4 % Neutrophils # (Auto) 7.7 X10'3 Lymphocytes # (Auto) 1.5 X10'3 Monocytes # (Auto) 1.2 X10'3 Eosinophils # (Auto) 0.0 X10'3 Basophils # (Auto) 0.0 X10'3 CBC Comment Potassium Level 4.4 MMOL/L Chloride Level 97 MMOL/L Carbon Dioxide Level 25.6 MMOL/L Anion Gap 8 Blood Urea Nitrogen 23 MG/DL Creatinine 1.30 MG/DL Estimated GFR/1.73 m2 41 ML/MIN BUN/Creatinine Ratio 17.7 Glucose Level 99 MG/DL Calcium Level 8.9 MG/DL Magnesium Level 1.4 MG/DL Total Bilirubin 0.5 MG/DL Aspartate Amino Transf (AST/SGOT) 22 U/L Alanine Aminotransferase (ALT/SGPT) 17 U/L Alkaline Phosphatase 65 IU/L Total Protein 7.5 G/DL Albumin 3.7 G/DL Globulin 3.8 G/DL Albumin/Globulin Ratio 1.0 Chemistry Comments Test 01/06/25 12:21 Sodium Level 131 MMOL/L DISCHARGE ADVICE New Medications: Lisinopril 20 Mg Tablet P.O. Q 24 H(NEW SENT NEW PRESCRIPTION) Atorvastatin Calcium 40 Mg Tablet P.O. Q 24 H Continued Medications: Omeprazole (Prilosec) 40 Mg Capsule Discontinued Medications: Lisinopril 20 Mg Tablet *Problems/Diagnosis: (1) MONIQUE (acute kidney injury) (2) Hyponatremia (3) Hypovolemia (4) Hypomagnesemia (5) Hyponatremia Status: Acute (6) CKD (chronic kidney disease) Status: Acute Total Time Spent on D/C: > 30 Minutes Date of Service: January 06, 2025 Billing Provider: AILEEN JENKINS MD, VENKATESH, RES January 06, 2025 21:29
== END 2025-01-06 12:27 | disposition home or self-care (01) | DRG 640 ==
LOC: ER 17:35 → ED HOLD 20:29 → PCU 3S 01-05 04:42
PROVIDERS: ADMIT Internal Medicine; ATTEND Internal Medicine
DX: E87.1 Hypo-osmolality and hyponatremia (principal); N17.0 Acute kidney failure with tubular necrosis; I12.9 Hypertensive chronic kidney disease with stage 1 through stage 4 chronic kidney disease, or unspecified chronic kidney disease; N18.30 Chronic kidney disease, stage 3 unspecified; G89.29 Other chronic pain; K21.9 Gastro-esophageal reflux disease without esophagitis; T50.2X5A Adverse effect of carbonic-anhydrase inhibitors, benzothiadiazides and other diuretics, initial encounter; E78.5 Hyperlipidemia, unspecified; E86.1 Hypovolemia; E83.42 Hypomagnesemia; D64.9 Anemia, unspecified; Z88.0 Allergy status to penicillin; Z88.8 Allergy status to other drugs, medicaments and biological substances; Z87.891 Personal history of nicotine dependence; Y92.89 Other specified places as the place of occurrence of the external cause
CPT/HCPCS: 36415; 71045; 80048; 80053; 80061; 81003; 82570; 83036; 83735; 83930; 83935; 84156; 84295; 84300; 84443; 85025; 87081; 87207; 96360; 99285; G0378; J1644; J7030; J7040